=== PATIENT | male | born 1940 | race Caucasian/White ===

== ENCOUNTER 2017-11-05 15:44 | Emergency (ER) | payer OTHER ==
[~2017-11-05] VITALS: Ht 177.8 cm; Wt 88.5 kg
[~2017-11-05 15:44] MED LIST: ASPIR 8181 MG PO; ASPIR-TRIN325 MG PO; CARAFATE 1 GM TA1 GM PO; COLACE100 MG PO; LIPITOR 20 MG T20 M1 PO; MIRALAX17 GM PO; NORVASC5 MG PO; PROTONIX40 M1 PO; RESTORIL30 MG PO; XANAX 0.5 MG0.5 MG PO; ZESTRIL40 MG PO
[2017-11-05] MEDS ORDERED: MELATONIN3 MG PO (15:54)
[2017-11-05 16:38] LABS: ABSOLUTE BASOPHILS 0.1 thou/uL (0.0-0.2); ABSOLUTE EOSINOPHILS 0.1 thou/uL (0.0-0.7); ABSOLUTE LYMPHOCYTES 1.4 thou/uL (0.8-5.3); ABSOLUTE NEUTROPHILS 8.7 thou/uL (1.6-8.1); BASOPHILS 0.5 %; EOSINOPHILS 0.6 %; HEMATOCRIT 46.1 % (42.0-52.0); HEMOGLOBIN 15.5 gm/dL (14.0-18.0); LYMPHOCYTES 12.2 %; MCH 31.3 pg (26.0-34.0); MCHC 33.6 g/dL (28.0-37.0); MCV 92.9 fL (80.0-100.0); MPV 7.9 fl. (7.2-11.1); NUCLEATED RBCS 0 /100WBC; PLATELET COUNT* 190 thou/uL (150-400); POLYS 77.7 %; RBC 4.97 mil/uL (4.50-6.00); RDW-CV 14.3 % (10.5-14.5); WBC 11.1 thou/uL (4.0-11.0)
[2017-11-05 16:46] LABS: APTT 26.9 Seconds (25.0-31.3); PROTIME 10.2 Seconds (9.20-11.50)
[2017-11-05 16:54] LABS: ANION GAP 11 mmol/L (7-16); BUN 18 mg/dL (7-18); CALCIUM 9.1 mg/dL (8.5-10.1); CHLORIDE 106 mmol/L (98-107); CO2 25 mmol/L (21-32); CREATININE 1.5 mg/dL (0.6-1.3); GLUCOSE 114 mg/dL (70-99); POTASSIUM 3.9 mmol/L (3.5-5.1); SODIUM 142 mmol/L (136-145)
[2017-11-05 17:13] LABS: ALBUMIN 4.2 g/dL (3.4-5.0); ALKALINE PHOSPHATASE 107 U/L (46-116); CK-MB MASS 3.1 ng/mL (<0.5-3.6); LIPASE 139 U/L (73-393); MAGNESIUM 1.9 mg/dL (1.8-2.4); NT-PRO BRAIN NAT PEPTIDE 31 pg/mL (<300); SGOT 31 U/L (15-37); SGPT 30 U/L (30-65); TOTAL BILIRUBIN 0.9 mg/dL (<0.1-1.0); TOTAL PROTEIN 7.8 g/dL (6.4-8.2); TROPONIN-I LEVEL <0.06 ng/mL (<0.06)
[2017-11-05 18:00] VITALS: BP 157/107
--- NOTE | 2017-11-06 09:14 | EKG ---
[place] [address] ELECTROCARDIOGRAM REPORT Name: TABITHA VELAZCO Room: [facility]#: [id number] Admission: 11/05/17 Attend Phys: Discharge: 11/05/17 Date of : 44 Report #: [id number] THIS REPORT FOR: //name// [facility] ED Test Date: 2017-11-05 Test Time: 15:49:12 Pat Name: TABITHA VELAZCO Department: Room: Gender: M [employer] C[employer]aker: Escobar HAMEED : 1940 Requested By: Yong Beauchamp Order Number: [id number] MD: Neto Soliz Measurements Intervals [place] Rate: 85 P: 14 VA: 154 QRS: -24 QRSD: 97 T: 17 QT: 370 QTc: 440 Interpretive Statements Sinus rhythm Borderline left axis deviation Low voltage, precordial leads Abnormal R-wave progression, late transition Compared to ECG 08/27/2014 14:46:49 Low QRS voltage now present Sinus arrhythmia no longer present Electronically Signed On 11-06-2017 9:13:53 CDT by Neto Soliz [email or web address] <ELECTRONICALLY SIGNED> By: Neto Soliz MD, FAC 11/06/17 0913 1549 1549 Neto Soliz MD, [facility] /EPI
== END 2017-11-05 18:04 | disposition home or self-care (01) ==
LOC: M.ERS 15:44
PROVIDERS: Family Medicine
DX: S20.212A Contusion of left front wall of thorax, initial encounter (principal); K21.9 Gastro-esophageal reflux disease without esophagitis; I10 Essential (primary) hypertension; E78.00 Pure hypercholesterolemia, unspecified; F41.9 Anxiety disorder, unspecified; Z98.890 Other specified postprocedural states; Z90.49 Acquired absence of other specified parts of digestive tract; W11.XXXA Fall on and from ladder, initial encounter; Y93.89 Activity, other specified; Y92.89 Other specified places as the place of occurrence of the external cause; Y99.8 Other external cause status